=== PATIENT | female | born 1950 | race Asian ===

== ENCOUNTER 2017-06-26 01:36 | Inpatient (IN) | payer OTHER, MEDICAID ==
[~2017-06-26] VITALS: Ht 149.9 cm; Wt 95.7 kg
[~2017-06-26 01:36] MED LIST: ARIP15TA2 PO; GABA-531 PO; OLAN10TA3 PO; SERT100T PO; TRAZ-147 PO
[2017-06-26 02:27] LABS: GLUCOSE,POINT OF CARE 118 MG/DL (70-110)
[2017-06-26 02:32] LABS: BASOPHILS # (AUTO) 0.01 K/uL (0.00-0.20); BASOPHILS % (AUTO) 0.3 % (0.0-2.0); EOSINOPHILS % (AUTO) 2.14 % (1.0-6.0); HEMATOCRIT 39.6 % (36-46); HEMOGLOBIN 13.6 g/dL (12.0-16.0); LYMPHOCYTES # (AUTO) 1.1 K/uL (1.0-4.8); LYMPHOCYTES % (AUTO) 23.2 % (22.0-44.0); MEAN CORPUSCULAR HEMOGLOBIN 32.4 pg (26.0-34.0); MEAN CORPUSCULAR HGB CONC 34.3 G/dL (31.0-37.0); MEAN CORPUSCULAR VOLUME 95 fL (80-100); MONOCYTES # (AUTO) 0.3 K/uL (0.1-1.0); MONOCYTES % (AUTO) 5.4 % (2.0-9.0); NEUTROPHILS # (AUTO) 3.2 K/uL (1.8-7.7); RED BLOOD CELL COUNT(AUTO) 4.18 MIL/uL (4.00-5.20); RED CELL DISTRIBUTION WIDTH 13.7 % (11.5-14.5); WHITE BLOOD COUNT (AUTO) 4.6 K/uL (4.5-11.0)
[2017-06-26 02:41] LABS: ANION GAP 7 mmol/L (8-16); CALCIUM, TOTAL 8.8 mg/dL (8.8-10.5); CARBON DIOXIDE 30 mmol/L (22-29); CHLORIDE 105 mmol/L (98-107); CREATININE 0.66 mg/dL (0.60-1.30); GLOMERULAR FILTR. RATE CALC > 60 mL/min (>60); POTASSIUM 3.5 mmol/L (3.5-5.1); SODIUM SERUM 142 mmol/L (136-145); UREA NITROGEN, BLOOD 14 mg/dL (7-18)
[2017-06-26 02:46] LABS: ALANINE AMINOTRANSFERASE 32 U/L (12-78); ASPARTATE AMINOTRANSFERASE 22 U/L (15-37); BILIRUBIN,TOTAL 0.6 mg/dL (0.1-1.0); TOTAL PROTEIN, SERUM 6.9 g/dL (6.4-8.2)
[2017-06-26 02:54] LABS: PLATELET COUNT (AUTO) 112 K/uL (150-450)
[2017-06-26] MEDS ORDERED: MORPHINE SULFATE 4 MG/ML SYRINGE IM ONE (04:45)
[2017-06-26] MEDS ORDERED: HALOPERIDOL 5 MG TABLET PO PRN (10:00)
[2017-06-26] MEDS ORDERED: ACETAMINOPHEN 500 MG TABLET PO ONE (12:30)
[2017-06-26] MEDS: ARIPiprazole 10 MG TABLET PO SCH (20:20)
[2017-06-26] MEDS: SERTRALINE HCL 100 MG TABLET PO SCH (20:20)
[2017-06-26] MEDS: OLANZapine 10 MG TABLET PO SCH (20:20)
[2017-06-26] MEDS: TraZODone HCL 100 MG TABLET PO SCH (20:20)
[2017-06-26] MEDS: GABAPENTIN 300 MG CAPSULE PO SCH (20:21)
[2017-06-27] MEDS: SERTRALINE HCL 100 MG TABLET PO SCH ×2 (08:58→20:13)
[2017-06-27] MEDS: GABAPENTIN 300 MG CAPSULE PO SCH ×2 (08:58→20:13)
[2017-06-27] MEDS: ARIPiprazole 10 MG TABLET PO SCH ×2 (08:59→20:13)
[2017-06-27 12:13] LABS: GLUCOSE COMMENT 2 Doctor Notified; GLUCOSE,POINT OF CARE 130 MG/DL (70-110)
[2017-06-27] MEDS ORDERED: ACETAMINOPHEN 500 MG TABLET PO ONE (13:15)
[2017-06-27] MEDS: LORazepam 2 MG TABLET PO PRN (16:58)
[2017-06-27] MEDS: TraZODone HCL 100 MG TABLET PO SCH (20:13)
[2017-06-27] MEDS: OLANZapine 10 MG TABLET PO SCH (20:14)
[2017-06-28 01:10] VITALS: BP 142/77
[2017-06-28 08:14] VITALS: BP 137/81
[2017-06-28 08:23] LABS: GLUCOSE COMMENT 2 Doctor Notified; GLUCOSE,POINT OF CARE 159 MG/DL (70-110)
[2017-06-28] MEDS: GABAPENTIN 300 MG CAPSULE PO SCH ×2 (08:49→21:07)
[2017-06-28] MEDS: ARIPiprazole 10 MG TABLET PO SCH (08:49)
[2017-06-28] MEDS: SERTRALINE HCL 100 MG TABLET PO SCH (08:50)
[2017-06-28] MEDS ORDERED: DEXTROSE 50%-WATER 25 GM/50 ML SYRINGE IVP PRN (09:30)
[2017-06-28 10:16] LABS: CHOL/HDL RATIO 3.9 (3.9-5.7); THYROID STIMULATING HORMONE 0.91 uIU/mL (0.36-3.74)
[2017-06-28 19:26] VITALS: BP 130/60
[2017-06-28] MEDS: TraZODone HCL 100 MG TABLET PO SCH (21:08)
[2017-06-28] MEDS: OLANZapine 10 MG TABLET PO SCH (21:08)
[2017-06-28 21:53] VITALS: BP 140/74
[2017-06-29 06:13] LABS: GLUCOSE,POINT OF CARE 105 MG/DL (70-110)
[2017-06-29] MEDS: ARIPiprazole 10 MG TABLET PO SCH ×2 (08:29→16:51)
[2017-06-29] MEDS: GABAPENTIN 300 MG CAPSULE PO SCH ×2 (08:29→20:02)
[2017-06-29] MEDS: BACITRACIN 28.4 GM OINTMENT TP SCH ×2 (08:29→16:52)
[2017-06-29] MEDS: SERTRALINE HCL 100 MG TABLET PO SCH ×2 (08:29→16:51)
[2017-06-29] MEDS: NYSTATIN 15 GM POWDER BOTTLE TP SCH ×2 (08:30→16:52)
[2017-06-29 08:40] VITALS: BP 139/78
[2017-06-29 10:09] VITALS: BP 151/88
[2017-06-29 10:36] VITALS: BP 151/84
[2017-06-29] MEDS: DOCUSATE SODIUM 100 MG CAPSULE PO SCH (16:51)
[2017-06-29 17:02] LABS: GLUCOSE,POINT OF CARE 114 MG/DL (70-110)
[2017-06-29 17:14] VITALS: BP 145/95
[2017-06-29] MEDS ORDERED: ACETAMINOPHEN 650 MG/20.3 ML SOLUTION UDCUP PO PRN (18:45)
[2017-06-29] MEDS: TraZODone HCL 100 MG TABLET PO SCH (20:02)
[2017-06-29] MEDS: OLANZapine 10 MG TABLET PO SCH (20:02)
[2017-06-29 21:51] VITALS: BP 140/90
[2017-06-29] MEDS: ACETAMINOPHEN 325 MG TABLET PO PRN (21:51)
[2017-06-29 22:51] VITALS: BP 144/92
[2017-06-30 01:28] VITALS: BP 144/94
[2017-06-30 04:09] VITALS: BP 147/92
[2017-06-30] MEDS: ACETAMINOPHEN 325 MG TABLET PO PRN ×3 (04:09→22:20)
[2017-06-30 06:17] LABS: GLUCOSE,POINT OF CARE 106 MG/DL (70-110)
[2017-06-30] MEDS: GABAPENTIN 300 MG CAPSULE PO SCH ×2 (08:20→20:17)
[2017-06-30] MEDS: BACITRACIN 28.4 GM OINTMENT TP SCH ×2 (08:21→20:16)
[2017-06-30] MEDS: SERTRALINE HCL 100 MG TABLET PO SCH ×2 (08:21→16:38)
[2017-06-30] MEDS: DOCUSATE SODIUM 100 MG CAPSULE PO SCH (08:21)
[2017-06-30] MEDS: NYSTATIN 15 GM POWDER BOTTLE TP SCH ×2 (08:21→20:16)
[2017-06-30] MEDS: ARIPiprazole 10 MG TABLET PO SCH ×2 (08:21→16:38)
[2017-06-30 08:30] VITALS: BP 140/85
[2017-06-30 16:43] LABS: GLUCOSE COMMENT 1 Received Meds; GLUCOSE,POINT OF CARE 136 MG/DL (70-110)
[2017-06-30 20:07] VITALS: BP 132/102
[2017-06-30] MEDS: TraZODone HCL 100 MG TABLET PO SCH (20:17)
[2017-06-30] MEDS: OLANZapine 10 MG TABLET PO SCH (20:17)
[2017-06-30 22:20] VITALS: BP 129/87
[2017-07-01 00:30] VITALS: BP 154/73
[2017-07-01] MEDS: ZOLPIDEM TARTRATE 10 MG TABLET PO PRN (00:33)
[2017-07-01 06:08] LABS: GLUCOSE,POINT OF CARE 105 MG/DL (70-110)
[2017-07-01] MEDS: SERTRALINE HCL 100 MG TABLET PO SCH ×2 (09:12→16:10)
[2017-07-01] MEDS: LISINOPRIL 20 MG TABLET PO SCH (09:12)
[2017-07-01] MEDS: DOCUSATE SODIUM 100 MG CAPSULE PO SCH (09:12)
[2017-07-01] MEDS: ARIPiprazole 10 MG TABLET PO SCH ×2 (09:12→16:10)
[2017-07-01 09:13] VITALS: BP 198/118
[2017-07-01] MEDS: ACETAMINOPHEN 325 MG TABLET PO PRN ×2 (09:13→16:11)
[2017-07-01] MEDS: GABAPENTIN 300 MG CAPSULE PO SCH ×2 (09:13→20:08)
[2017-07-01] MEDS: BACITRACIN 28.4 GM OINTMENT TP SCH ×2 (09:13→16:09)
[2017-07-01] MEDS: NYSTATIN 15 GM POWDER BOTTLE TP SCH ×2 (09:13→16:10)
[2017-07-01 10:13] VITALS: BP 116/67
[2017-07-01 16:11] VITALS: BP 126/91
[2017-07-01 16:12] LABS: GLUCOSE COMMENT 1 Received Meds; GLUCOSE,POINT OF CARE 142 MG/DL (70-110)
[2017-07-01] MEDS: INSULIN ASPART 100 UNITS/ML SQ PRN (16:52)
[2017-07-01] MEDS: OLANZapine 10 MG TABLET PO SCH (20:07)
[2017-07-01] MEDS: TraZODone HCL 100 MG TABLET PO SCH (20:08)
[2017-07-02 01:30] VITALS: BP 147/76
[2017-07-02] MEDS: ZOLPIDEM TARTRATE 10 MG TABLET PO PRN (01:58)
[2017-07-02] MEDS: INSULIN ASPART 100 UNITS/ML SQ PRN (06:37)
[2017-07-02 08:50] VITALS: BP 148/84
[2017-07-02] MEDS: GABAPENTIN 300 MG CAPSULE PO SCH ×2 (10:10→20:17)
[2017-07-02] MEDS: DOCUSATE SODIUM 100 MG CAPSULE PO SCH (10:10)
[2017-07-02] MEDS: ARIPiprazole 10 MG TABLET PO SCH ×2 (10:10→16:25)
[2017-07-02] MEDS: SERTRALINE HCL 100 MG TABLET PO SCH ×2 (10:10→16:25)
[2017-07-02] MEDS: LISINOPRIL 20 MG TABLET PO SCH (10:10)
[2017-07-02] MEDS: BACITRACIN 28.4 GM OINTMENT TP SCH ×2 (10:10→16:24)
[2017-07-02] MEDS: NYSTATIN 15 GM POWDER BOTTLE TP SCH ×2 (10:11→16:24)
[2017-07-02 10:12] LABS: GLUCOSE,POINT OF CARE 91 MG/DL (70-110)
[2017-07-02 17:03] VITALS: BP 133/68
[2017-07-02] MEDS: OLANZapine 10 MG TABLET PO SCH (20:17)
[2017-07-02] MEDS: TraZODone HCL 100 MG TABLET PO SCH (20:17)
[2017-07-03 02:05] VITALS: BP 141/83
[2017-07-03] MEDS: ZOLPIDEM TARTRATE 10 MG TABLET PO PRN (02:32)
[2017-07-03] MEDS: ARIPiprazole 10 MG TABLET PO SCH ×2 (08:18→16:21)
[2017-07-03] MEDS: GABAPENTIN 300 MG CAPSULE PO SCH ×2 (08:18→20:00)
[2017-07-03] MEDS: SERTRALINE HCL 100 MG TABLET PO SCH ×2 (08:18→16:21)
[2017-07-03] MEDS: DOCUSATE SODIUM 100 MG CAPSULE PO SCH (08:18)
[2017-07-03] MEDS: LISINOPRIL 20 MG TABLET PO SCH (08:18)
[2017-07-03] MEDS: BACITRACIN 28.4 GM OINTMENT TP SCH ×2 (08:19→16:21)
[2017-07-03] MEDS: NYSTATIN 15 GM POWDER BOTTLE TP SCH ×2 (08:19→16:21)
[2017-07-03 08:42] VITALS: BP 135/69
[2017-07-03 16:56] VITALS: BP 155/94
[2017-07-03] MEDS: TraZODone HCL 100 MG TABLET PO SCH (20:00)
[2017-07-03] MEDS: OLANZapine 10 MG TABLET PO SCH (20:00)
[2017-07-04 03:45] VITALS: BP 138/88
[2017-07-04] MEDS: ACETAMINOPHEN 325 MG TABLET PO PRN (04:01)
[2017-07-04] MEDS: DOCUSATE SODIUM 100 MG CAPSULE PO SCH (08:33)
[2017-07-04] MEDS: LISINOPRIL 20 MG TABLET PO SCH (08:33)
[2017-07-04] MEDS: GABAPENTIN 300 MG CAPSULE PO SCH ×2 (08:33→20:47)
[2017-07-04] MEDS: ARIPiprazole 10 MG TABLET PO SCH ×2 (08:33→16:15)
[2017-07-04] MEDS: SERTRALINE HCL 100 MG TABLET PO SCH ×2 (08:33→16:15)
[2017-07-04] MEDS: BACITRACIN 28.4 GM OINTMENT TP SCH ×2 (08:33→16:15)
[2017-07-04] MEDS: NYSTATIN 15 GM POWDER BOTTLE TP SCH ×2 (08:34→16:15)
[2017-07-04 08:47] VITALS: BP 128/82
[2017-07-04 17:00] VITALS: BP 160/91
[2017-07-04] MEDS: OLANZapine 10 MG TABLET PO SCH (20:46)
[2017-07-04] MEDS: TraZODone HCL 100 MG TABLET PO SCH (20:47)
[2017-07-05 02:50] VITALS: BP 139/75
[2017-07-05] MEDS: ACETAMINOPHEN 325 MG TABLET PO PRN (03:04)
[2017-07-05] MEDS: LORazepam 2 MG TABLET PO PRN (03:04)
[2017-07-05 08:02] VITALS: BP 152/84
[2017-07-05] MEDS ORDERED: ARIP10TA8 PO (08:44)
[2017-07-05] MEDS ORDERED: GABA-531 PO (08:44)
[2017-07-05] MEDS ORDERED: OLAN10TA3 PO (08:44)
[2017-07-05] MEDS ORDERED: SERT100T12 PO (08:45)
[2017-07-05] MEDS ORDERED: TRAZ-147 PO (08:45)
[2017-07-05] MEDS ORDERED: DSS100 PO (08:48)
[2017-07-05] MEDS ORDERED: LISI-662 PO (08:49)
[2017-07-05] MEDS ORDERED: NYST30CR9 TP (08:50)
[2017-07-05] MEDS ORDERED: BACI3.5O22 TP (08:54)
[2017-07-05] MEDS: SERTRALINE HCL 100 MG TABLET PO SCH (09:07)
[2017-07-05] MEDS: ARIPiprazole 10 MG TABLET PO SCH (09:07)
[2017-07-05] MEDS: GABAPENTIN 300 MG CAPSULE PO SCH (09:07)
[2017-07-05] MEDS: LISINOPRIL 20 MG TABLET PO SCH (09:07)
[2017-07-05] MEDS: DOCUSATE SODIUM 100 MG CAPSULE PO SCH (09:07)
[2017-07-05] MEDS: BACITRACIN 28.4 GM OINTMENT TP SCH (09:09)
[2017-07-05] MEDS: NYSTATIN 15 GM POWDER BOTTLE TP SCH (09:10)
== END 2017-07-05 13:45 | disposition home or self-care (01) | DRG 885 ==
LOC: EMS 01:38 → AHU 06-27 23:27 → 3EX 06-28 19:56
PROVIDERS: ADMIT Psychiatry & Neurology Child & Adolescent Psychiatry
DX: F25.0 Schizoaffective disorder, bipolar type (principal); D69.2 Other nonthrombocytopenic purpura; Z68.41 Body mass index [BMI] 40.0-44.9, adult; E11.9 Type 2 diabetes mellitus without complications; E66.01 Morbid (severe) obesity due to excess calories; R45.851 Suicidal ideations; F79 Unspecified intellectual disabilities; M25.519 Pain in unspecified shoulder; M25.569 Pain in unspecified knee; M54.9 Dorsalgia, unspecified; J44.9 Chronic obstructive pulmonary disease, unspecified; Z88.3 Allergy status to other anti-infective agents; Z88.8 Allergy status to other drugs, medicaments and biological substances; E78.00 Pure hypercholesterolemia, unspecified; G89.29 Other chronic pain; I10 Essential (primary) hypertension; M19.90 Unspecified osteoarthritis, unspecified site; Z79.899 Other long term (current) drug therapy; Z86.73 Personal history of transient ischemic attack (TIA), and cerebral infarction without residual deficits; Z87.440 Personal history of urinary (tract) infections; Z87.01 Personal history of pneumonia (recurrent)
CPT/HCPCS: 70450; 72220; 73521; 82962; 83036; 84439; 84443; 96372; 97162; 97165; 97535; 99285; G0480; J2270